=== PATIENT | female | born 1980 | race Hispanic/Latino ===

== ENCOUNTER 2017-03-08 20:31 | Emergency (ER) | payer MEDICARE ==
[2017-03-09] MEDS ORDERED: FLEXERIL PO ONE (00:33)
[2017-03-09] MEDS ORDERED: TORADOL IM ONE (00:33)
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
[2017-03-09 04:18] VITALS: BP 142/80
== END 2017-03-09 01:00 | disposition home or self-care (01) ==
LOC: ED 20:31
DX: S96.912A Strain of unspecified muscle and tendon at ankle and foot level, left foot, initial encounter (principal); G89.29 Other chronic pain; F17.200 Nicotine dependence, unspecified, uncomplicated; Z90.49 Acquired absence of other specified parts of digestive tract; X58.XXXA Exposure to other specified factors, initial encounter; Y93.89 Activity, other specified; Y99.8 Other external cause status; Y92.89 Other specified places as the place of occurrence of the external cause
CPT/HCPCS: 96372; 99282; J1885